=== PATIENT | male | born 1985 | race Caucasian/White ===

== ENCOUNTER 2017-12-18 08:46 | Emergency (ER) | payer OTHER ==
[~2017-12-18] VITALS: Ht 177.8 cm; Wt 88.5 kg
[~2017-12-18 08:46] MED LIST: ARIP1TAB8 PO; ATEN-173 PO; BUPR-79 PO; OLAN1TAB7 PO; PRAZ2CAP3 PO
[2017-12-18 08:54] VITALS: TEMP 36.8; Ht 177.8 cm; Wt 88.5 kg
[2017-12-18] MEDS ORDERED: SODIUM CHLORIDE 0.9% 1000ML 1,000 ML IV STA ×2 (09:20)
[2017-12-18] MEDS ORDERED: KETOROLAC TROMETHAMINE 30 MG/ML VIAL IV STA (09:20)
--- NOTE | 2017-12-18 09:44 | EMERGENCY ROOM VISIT NOTE ---
History Report prepared by Isaac: Yury Freeman Under the Supervision of: Dr. Lucia Boyd M.D. First contact with patient: 09:10 Chief Complaint: DIARRHEA Stated Complaint: DIARRHEA History of Present Illness The patient is a 32 year old male who presents to the Emergency Room with complaints of persistent diarrhea that has been "nearly constant" since Sunday night, 3 days ago. He also complains of "the worst cramping I have ever felt" all over his abdomen last night. The patient notes that his symptoms began 1 week ago when he vomited a few times, he has felt weak/nauseous intermittently since then. The patient was evaluated by urgent care, who suggested that he stay away from gluten/dairy as he has Celiac's Disease. Source of History: patient Onset: 3 days ago Position: abdomen Symptom Intensity: "Worst cramping of his life" Quality: cramping Timing: other (Persistent diarrhea) Associated Symptoms: + nausea, + vomiting, + diarrhea, + weakness Review of Systems See HPI for pertinent positives & negatives. A total of 10 systems reviewed and were otherwise negative. Past Medical & Surgical Medical Problems: (1) Celiac disease (2) Crohn's disease Family History FH: [place] (myocardial infarction) FATHER FH: cancer Social History Smoking Status: Light Tobacco Smoker Alcohol Use: none Marital Status: Housing Status: lives with family Occupation Status: student Current/Historical Medications No Active Prescriptions or Reported Meds Allergies Coded Allergies: No Known Allergies (Unverified , 12/18/17) Physical Exam Vital Signs Date Time Temp Pulse Resp B/P (MAP) Pulse Ox O2 Delivery O2 Flow Rate FiO2 12/18/17 11:59 70 18 118/62 100 12/18/17 08:54 36.8 79 18 124/80 98 Room Air Physical Exam Vital signs reviewed. General: Well-appearing male, in no significant distress. HEENT: No scleral icterus, PERRLA, neck supple. Atraumatic. Cardiovascular: Regular rate and rhythm, no extra sounds. Pulmonary: Clear to auscultation bilaterally, normal work of breathing. Abdomen: Soft, with mild lower abdominal tenderness, no rebound, no guarding. Non-distended, positive bowel sounds. Musculoskeletal: Atraumatic, no peripheral edema. Neurologic: Patient awake alert and oriented x 3 Skin: Warm, dry, no rash Medical Decision & Procedures ER Provider Diagnostic Interpretation: Radiology results as stated below per my review and radiologist interpretation: PA CHEST WITH ABDOMINAL SERIES CLINICAL HISTORY: Diarrhea. Abdominal cramping. FINDINGS: A PA chest radiograph is obtained. No prior studies are available for comparison at the time of dictation. The cardiomediastinal silhouette is unremarkable. The lungs and pleural spaces are clear. No pneumothorax is seen. The bony thorax is grossly intact. Supine and erect abdominal radiographs are correlated with abdominal CT dated 06/18/2016. There is a nonobstructed abdominal bowel gas pattern. No evidence of intraperitoneal free air is seen. There are no abnormal abdominal calcifications. The lumbosacral spine and bony pelvis appear intact. IMPRESSION: 1. No active disease in the chest. 2. Nonobstructed abdominal bowel gas pattern. Electronically signed by: Mendez Mullen M.D. 12/18/2017 10:34 AM Dictated Date/Time: 12/18/2017 10:33 AM Laboratory Results 12/18/17 09:50 Red Blood Count 5.52, Mean Corpuscular Volume 89.1, Mean Corpuscular Hemoglobin 31.3, Mean Corpuscular Hemoglobin Concent 35.2, Mean Platelet Volume 9.2, Neutrophils (%) (Auto) 70.5, Lymphocytes (%) (Auto) 20.1, Monocytes (%) (Auto) 6.3, Eosinophils (%) (Auto) 2.5, Basophils (%) (Auto) 0.5, Neutrophils # (Auto) 5.39, Lymphocytes # (Auto) 1.54, Monocytes # (Auto) 0.48, Eosinophils # (Auto) 0.19, Basophils # (Auto) 0.04 12/18/17 09:50 Test 12/18/17 09:50 White Blood Count 7.65 K/uL (4.8-10.8) Red Blood Count 5.52 M/uL (4.7-6.1) Hemoglobin 17.3 g/dL (14.0-18.0) Hematocrit 49.2 % (42-52) Mean Corpuscular Volume 89.1 fL (80-100) Mean Corpuscular Hemoglobin 31.3 pg (25-34) Mean Corpuscular Hemoglobin Concent 35.2 g/dl (32-36) Platelet Count 344 K/uL (130-400) Mean Platelet Volume 9.2 fL (7.4-10.4) Neutrophils (%) (Auto) 70.5 % Lymphocytes (%) (Auto) 20.1 % Monocytes (%) (Auto) 6.3 % Eosinophils (%) (Auto) 2.5 % Basophils (%) (Auto) 0.5 % Neutrophils # (Auto) 5.39 K/uL (1.4-6.5) Lymphocytes # (Auto) 1.54 K/uL (1.2-3.4) Monocytes # (Auto) 0.48 K/uL (0.11-0.59) Eosinophils # (Auto) 0.19 K/uL (0-0.5) Basophils # (Auto) 0.04 K/uL (0-0.2) RDW Standard Deviation 40.3 fL (36.4-46.3) RDW Coefficient of Variation 12.4 % (11.5-14.5) Immature Granulocyte % (Auto) 0.1 % Immature Granulocyte # (Auto) 0.01 K/uL (0.00-0.02) Anion Gap 4.0 mmol/L (3-11) Est Creatinine Clear Calc Drug Dose 111.0 ml/min Estimated GFR () 106.4 Estimated GFR (Non- 91.8 BUN/Creatinine Ratio 7.7 (10-20) Calcium Level 8.6 mg/dl (8.5-10.1) Magnesium Level 1.9 mg/dl (1.8-2.4) Total Bilirubin 0.8 mg/dl (0.2-1) Direct Bilirubin 0.2 mg/dl (0-0.2) Aspartate Amino Transf (AST/SGOT) 23 U/L (15-37) Alanine Aminotransferase (ALT/SGPT) 37 U/L (12-78) Alkaline Phosphatase 76 U/L (45-117) Total Protein 7.9 gm/dl (6.4-8.2) Albumin 4.0 gm/dl (3.4-5.0) Lipase 103 U/L (73-393) Laboratory results per my review. Medications Administered Medications (Trade) Dose Ordered Sig/Az Route Start Time Stop Time Status Last Admin Dose Admin Ketorolac Tromethamine (Toradol Inj) 30 mg NOW STAT IV 12/18/17 09:20 12/18/17 09:23 DC 12/18/17 10:13 30 MG Sodium Chloride 1,000 ml @ 999 mls/hr Q1H1M STAT IV 12/18/17 09:20 12/18/17 10:20 DC 12/18/17 10:12 999 MLS/HR Sodium Chloride 1,000 ml @ 200 mls/hr Q5H STAT IV 12/18/17 09:20 12/18/17 12:11 DC 12/18/17 10:13 200 MLS/HR ED Course 0920: Past medical records reviewed. The patient was evaluated in room B6. A complete history and physical examination was performed. 0920: Ordered Sodium Chloride 1000 mL @ 200 mL/hr IV, Sodium Chloride 1000 mL @ 999 mL/hr IV, Toradol 30 mg IV. 1129: Upon reevaluation, the patient appeared to have improvement of his symptoms. I discussed findings with him. He verbalized agreement of the treatment plan. The patient was discharged home. Medical Decision Differential diagnosis: Etiologies such as appendicitis, diverticulitis, PUD, biliary pathology, UTI, pancreatitis, obstruction, mesenteric ischemia, aortic pathology, infections, inflammatory bowel disease, renal colic, as well as others were entertained. This patient was evaluated and appeared to be in no significant distress. IV access was obtained and laboratory work was drawn. The patient was placed on the apron trimmer. He was given IV Toradol and hydrated with normal saline solution. X-ray series reveals a nonobstructive bowel gas pattern. There is no evidence of free air. Laboratory work is unrevealing. Stool studies are negative for C. difficile. Cultures are pending. Stool is heme negative. Patient was discharged and advised to maintain a bland diet. He will follow-up with his physician for reevaluation and return to the ER for worsening of symptoms or any medical concerns. Medication Reconcilliation Current Medication List: was personally reviewed by me Blood Pressure Screening Patient's blood pressure: Normal blood pressure Impression Primary Impression: Diarrhea Scribe Attestation The scribe's documentation has been prepared under my direction and personally reviewed by me in its entirety. I confirm that the note above accurately reflects all work, treatment, procedures, and medical decision making performed by me. Departure Information Dispostion Home / Self-Care Prescriptions No Active Prescriptions or Reported Meds Referrals No Doctor, Assigned (PCP) Forms HOME CARE DOCUMENTATION FORM, IMPORTANT VISIT INFORMATION, WORK / SCHOOL INSTRUCTIONS Patient Instructions My [facility] Additional Instructions Diagnosis: Diarrhea Please drink plenty of clear fluids. Avoid greasy, spicy foods and dairy products. Avoid alcohol. Maintain a bland diet BRAT: Bananas, rice, applesauce and toast. Wash your hands frequently to avoid contaminating others. Follow-up with your physician for reevaluation this week. Return to the emergency department for worsening of symptoms or any medical concerns.
[2017-12-18 10:01] LABS: BASO % 0.5 %; BASO ABS # 0.04 K/uL (0-0.2); EOS % 2.5 %; EOS ABS # 0.19 K/uL (0-0.5); HEMATOCRIT 49.2 % (42-52); HEMOGLOBIN 17.3 g/dL (14.0-18.0); IG# 0.01 K/uL (0.00-0.02); LYMPH % 20.1 %; LYMPH ABS # 1.54 K/uL (1.2-3.4); MEAN CELL VOLUME 89.1 fL (80-100); MEAN CORPUSCULAR HEMOGLOBIN 31.3 pg (25-34); MEAN CORPUSCULAR HGB CONC 35.2 g/dl (32-36); MEAN PLATELET VOLUME 9.2 fL (7.4-10.4); MONO % 6.3 %; MONO ABS # 0.48 K/uL (0.11-0.59); NEUT % 70.5 %; NEUT ABS # 5.39 K/uL (1.4-6.5); PLATELET COUNT 344 K/uL (130-400); RED CELL DISTRIBUTION WIDTH CV 12.4 % (11.5-14.5); RED CELL DISTRIBUTION WIDTH SD 40.3 fL (36.4-46.3); WHITE BLOOD COUNT 7.65 K/uL (4.8-10.8)
[2017-12-18 10:21] LABS: CALCIUM 8.6 mg/dl (8.5-10.1); CREATININE 1.06 mg/dl (0.60-1.40); POTASSIUM 4.1 mmol/L (3.5-5.1); TOTAL PROTEIN 7.9 gm/dl (6.4-8.2)
--- NOTE | 2017-12-18 10:35 | DIAGNOSTIC IMAGING REPORT ---
PA CHEST WITH ABDOMINAL SERIES CLINICAL HISTORY: Diarrhea. Abdominal cramping. FINDINGS: A PA chest radiograph is obtained. No prior studies are available for comparison at the time of dictation. The cardiomediastinal silhouette is unremarkable. The lungs and pleural spaces are clear. No pneumothorax is seen. The bony thorax is grossly intact. Supine and erect abdominal radiographs are correlated with abdominal CT dated 06/18/2016. There is a nonobstructed abdominal bowel gas pattern. No evidence of intraperitoneal free air is seen. There are no abnormal abdominal calcifications. The lumbosacral spine and bony pelvis appear intact. IMPRESSION: 1. No active disease in the chest. 2. Nonobstructed abdominal bowel gas pattern. Electronically signed by: Mendez Mullen M.D. 12/18/2017 10:34 AM Dictated Date/Time: 12/18/2017 10:33 AM
[2017-12-18 11:59] VITALS: BP 118/62; PULSE 70; O2SAT 100
== END 2017-12-18 12:01 | disposition home or self-care (01) ==
LOC: C.EDB 08:47
DX: R19.7 Diarrhea, unspecified (principal); K90.0 Celiac disease; K50.90 Crohn's disease, unspecified, without complications; Z72.0 Tobacco use